=== PATIENT | female | born 2000 | race Caucasian/White ===

== ENCOUNTER 2025-04-10 10:40 | Emergency (ER) | payer MEDICAID ==
[~2025-04-10] VITALS: Ht 149.9 cm; Wt 47.7 kg
[2025-04-10 11:28] LABS: LEUKOCYTE ESTERASE ,URINE TRACE (Neg); NITRITES, URINE NEGATIVE (Neg); OCCULT BLOOD,URINE TRACE-INTACT (Neg)
[2025-04-10 11:29] LABS: URINE HCG POSITIVE (NEG)
[2025-04-10 11:33] LABS: UA COLLECTION TYPE CLN CATCH MIDSTREAM
[2025-04-10 11:34] LABS: MEAN PLATELET VOLUME 9.8 FL (7.4-10.4); RED CELL DISTRIBUTION WIDTH 12.8 % (11.5-14.5)
[2025-04-10 11:34] LABS: MUCUS STRANDS FEW /LPF (Neg); SQUAMOUS EPITHELIAL CELL,UR MODERATE /LPF (FEW)
[2025-04-10 11:40] LABS: CREATININE 0.55 MG/DL (0.40-0.90); TOTAL CARBON DIOXIDE 17.6 MMOL/L (24-32); eCRCL 106 ML/MIN; eGFR > 90 ML/MIN
--- NOTE | 2025-04-10 13:40 | Physician Documentation ---
History of Present Illness ~ Chief Complaint: Vomiting Stated Complaint: MORNING SICKNESS Time Seen by MD: 11:54 OK to notify your PCP?: Yes Source: patient Mode of Arrival: POV Exam Limitations: no limitations HPI Presents to the ER for vomiting and nausea for the past 2 weeks. She reports that she is unable to keep food or water down. She is approximately 11 weeks , . She reports that she was seen at urgent care last week and was prescribed Diclegis for her morning sickness but it has not been helpful at all. She is currently taking 2 tablets at bedtime. Last dose was last night. She reports that she has been nauseous with occasional vomiting over the past couple of months. She denies having any vaginal bleeding but she does report having occasional cramping sensation. Denies any urinary symptoms. Medication Reconciliation Allergies: Coded Allergies: No Known Allergies (Unverified , 04/10/25) Miscellaneous Medications Home Med List (No Home Medications), (Reported) Past Medical History Past Medical History: No Pertinent History Review of Systems All Other Systems at this time: Reviewed and Negative Physical Exam Physical Exam Vital Signs: RN Vital Signs have been reviewed: Yes, Temperature: 97.9, Source: Temporal, Heart Rate: 89, Respiratory Rate: 16, BP: 115/82, Pulse Oximetry: 99, Weight: 47.700 Oxygen Flow Rate: 0 Pulse Oximetry Reflects: adequate oxygenation Physical Exam General: Alert, no apparent distress. HEENT: PERRL, EOMI, no injection, moist mucous membranes. Sclera appears slightly icteric. Neck: Full range of motion. Respiratory: Lungs clear, no respiratory distress. Chest: No accessory muscle use. Cardiovascular: Regular rate and rhythm, no murmurs. Gastrointestinal: Soft, tender in left and right upper quadrant, nondistended. Bowels sounds present. No organomegaly. Guarding or rebound tenderness. Extremities: Normal range of motion, no deformity. Neurologic: Oriented x4. Psychiatric: Normal mood and affect. Skin: Normal color, warm and dry. No edema, no ecchymosis. No obvious jaundice Progress Progress Note Transfer declined at [facility] due to bed availability. Attempting [facility] for transfer. Started normal saline at 150 mL an hour for hydration End of shift, transfer of care to Dr. Pollard. Results/Orders Results/Orders Orders - MILAGROS,KARIN D RADIO STATION ENGINEER Ultrasound Of Abdomen (04/10/25 13:13) US OB (04/10/25 13:13) Saline Lock (04/10/25 ) Page Hospitalist (04/10/25 15:20) Fill Out Med Reconciliation (04/10/25 15:20) Potassium Cl Inj (Potassium Cl Inj) (04/10/25 15:25) Completed Orders - KARIN LINARESP Pt Inr (04/10/25 13:13) Ammonia (04/10/25 13:13) Ringers Solution, Lacted (Lactated Ringe (04/10/25 13:15) MG (04/10/25 13:13) Ultrasound Of Abdomen (04/10/25 13:13) US OB (04/10/25 13:13) Hcg Serum Qt (04/10/25 13:13) Metoclopramide Inj (Reglan Inj) (04/10/25 13:15) Ceftriaxone/I0s-Fvemvido 1gm (Rocephin 1 (04/10/25 15:25) Medications Received in ER Medications (Trade) Dose Ordered Sig/Haley Route PRN Reason Start Time Stop Time Status Last Admin Dose Admin (lactated ringers solution) 1,000 ml ONCE ONCE IV 04/10/25 13:15 04/10/25 13:42 DC 04/10/25 13:59 1,000 ML (Reglan inj) 5 mg ONCE ONCE IV 04/10/25 13:15 04/10/25 13:42 DC 04/10/25 13:58 5 MG Ceftriaxone Sodium 50 ml @ 100 mls/hr ONCE ONCE IV 04/10/25 15:25 04/10/25 15:54 DC 04/10/25 16:10 100 MLS/HR Potassium Chloride 40 meq/ Sodium Chloride 520 ml @ 130 mls/hr ONCE ONCE IV 04/10/25 15:25 04/10/25 19:24 04/10/25 16:22 130 MLS/HR Vital Signs 04/10/25 04/10/25 04/10/25 04/10/25 10:44 11:15 12:08 13:15 Temp 97.9 Pulse 99 94 92 89 Resp 18 16 18 16 B/P (MAP) 123/79 115/82 (93) 109/77 (88) 115/82 (93) Pulse Ox 98 99 98 99 O2 Flow Rate 0 0 0 0 04/10/25 04/10/25 15:01 16:48 Pulse 90 80 Resp 16 18 B/P (MAP) 110/73 (85) 105/67 (80) Pulse Ox 99 99 O2 Flow Rate 0 0 Laboratory Tests Test 04/10/25 10:50 04/10/25 11:04 Urine Specimen Description Cln catch midstream Urine Color Yellow Urine Clarity Clear Urine pH 6.5 Urine Specific [place] >=1.030 Urine Protein 30 H Urine Glucose (UA) Negative Urine Ketones >=80 Urine Occult Blood Trace-intact Urine Nitrite Negative Urine Bilirubin Moderate Urine Urobilinogen 1.0 Urine Leukocyte Esterase Trace H Urine RBC 0-2 Urine WBC 5-10 H Urine Squamous Epithelial Cells Moderate Urine Bacteria Few Urine Mucus Few Urine Culture Indicated Indicated Volume Urine Centrifuged 10 ml Urine HCG, Qualitative Positive Urine Comment White Blood Count 12.4 H Red Blood Count 4.62 Hemoglobin 14.7 Hematocrit 42.8 Mean Corpuscular Volume 92.6 Mean Corpuscular Hemoglobin 31.8 H Mean Corpuscular Hemoglobin Concent 34.4 Red Cell Distribution Width 12.8 Platelet Count 418 Mean Platelet Volume 9.8 Neutrophils (%) (Auto) 80.3 H Lymphocytes (%) (Auto) 11.7 L Monocytes (%) (Auto) 7.7 Eosinophils (%) (Auto) 0.1 Basophils (%) (Auto) 0.2 Neutrophils # (Auto) 10.0 H Lymphocytes # (Auto) 1.5 Monocytes # (Auto) 1.0 H Eosinophils # (Auto) 0.0 Basophils # (Auto) 0.0 CBC Comment Prothrombin Time 15.1 H INR International Normalized Ratio 1.5 Coagulation Comments Sodium Level 137 Potassium Level 3.1 L Chloride Level 101 Carbon Dioxide Level 17.6 L Anion Gap 18 H Blood Urea Nitrogen 4 L Creatinine 0.55 Estimated GFR/1.73 m2 > 90 BUN/Creatinine Ratio 7.3 L Glucose Level 100 Calcium Level 9.5 Magnesium Level 1.8 Total Bilirubin 2.2 H Aspartate Amino Transf (AST/SGOT) 169 H Alanine Aminotransferase (ALT/SGPT) 635 H Alkaline Phosphatase 116 Ammonia < 10 L Total Protein 8.2 Albumin 3.8 Globulin 4.4 H Albumin/Globulin Ratio 0.9 L Lipase 109 H HCG Beta Subunit [id number] Chemistry Comments Microbiology Date/Time Source Procedure Growth Status 04/10/25 11:34 Urine Clean Catch Midstream Urine Culture - Preliminary Culture received. Resulted EKG/XRAY/CT/US/VASC/MRI Ultrasound : Impression Ultrasound OB as interpreted by me shows: Single live intrauterine with heart rate of 167 bpm. Ultrasound of abdomen as interpreted by me shows: Sludge within the Gallbladder, No evidence of gallstones, gallbladder wall thickening or pericholecystic free fluid. Positive sonographic Palm's sign. Medical Decision Making Additional information obtaine: old records Findings Physical exam reveals slight jaundice of sclera, tender upper abdomen, no obvious liver enlargement. Vital signs are stable. Patient labs show elevated CBC 12.4, potassium 3.1, CO2, elevated anion gap, bilirubin 2.2, AST 169, ALT 635, lipase 109, protein, leukocyte esterase, elevated WBC, bacteria and bilirubin in urine. Discussed this case with Dr. Quijano who recommended getting a hCG quant, abdominal ultrasound to evaluate the liver and pancreas. To rule out acute liver failure, I have ordered PT INR and ammonia. Since the potassium was low I ordered to check magnesium. For her dehydration and sym ptoms, I ordered 1 L lactated Ringer's as well as IV metoclopramide 5 mg for nausea. I decreased the dose of metoclopramide due to this patient's severe hepatic impairment and electrolyte abnormalities and gave the hepatic impairment dose adjustment of 5 mg instead of the full 10 mg. The Reglan improved her nausea but she is unable to keep water/ice chips down. Since she is currently taking Diclagis 10-10 2 tablets at nighttime with a past week in his not working I resorted to metoclopramide. INR is normal, PTS slightly elevated. Ammonia level is normal. Ob ultrasound shows live viable fetus at 167 beats per minute approximately 11 weeks/ 4 days. Abdominal ultrasound shows Sludge within the Gallbladder with No evidence of gallstones, gallbladder wall thickening or pericholecystic free fluid. Positive sonographic Palm's sign. The pancreas was not well visualized. For the UTI treatment, I gave IV Rocephin and to correct the potassium 40 mEq IV. Attempted to admit this patient however admission for acute cholecystitis, pancreatitis and electrolyte abnormalities but was declined by hospitalist, Dr. Mayfield due to no obstetric services present here. Spoke with Dr. Quijano again and she recommended transferring to a hospital that does have the services. Transfer process initiated. Differential Dx:Considerations: Include: Active labor-, Cystitis: Acute, Ectopic , demise, Placenta previa, Pyelonephritis: Acute Departure Disposition: 04 [facility] Impression: Primary Impression: Vomiting of Additional Impressions: Hypokalemia Cholecystitis, acute Elevated alanine aminotransferase (ALT) level Elevated SGOT (AST) Elevated bilirubin UTI (urinary tract infection) in in first trimester Elevated lipase Referrals: NO PRIMARY CARE PROVIDER (PCP) Additional Comment Medical Screen Exam This patient recieved a medical screening examination. After reviewing the individual's medical complaints with presenting symptoms and performing an appropriate physical examination, it was determined that no immediate life- threatening emergency medical condition is present. This individual is also not a women having contractions. Signature Scribe Signature: . Attestation: Scribed for Karin Linaresp by Karin Matias NP . 04/10/25 18:05 Parts of this note were created using Pixelated voice recognition software program. While efforts were made to correct any mistakes made by this voice recognition software program, nonsensical phrases may remain in this note. In addition, there may be errors and syntax, grammar, content and spelling. KARIN LINARES RADIO STATION ENGINEER Apr 10, 2025 13:40
[2025-04-10 13:56] LABS: INR 1.5 INR
[2025-04-10] MEDS: metoclopramide 5 mg/ml inj IV ONE ×2 (13:58→21:25)
[2025-04-10] MEDS: ringers solution, lactated 1000ml IV soln IV ONE (13:59)
--- NOTE | 2025-04-10 14:44 | RADIOLOGY REPORT ---
PROCEDURE: US ULTRASOUND OF [facility] Study Date and Requested Time: 04/10/2025 01:47 PM History: confirm viability, elevated ALT, bilirubin and lipase COMPARISON: None TECHNIQUE: Multiple high resolution chen-scale images obtained of the right upper quadrant of the abdomen with color Doppler for evaluation of blood flow and vascularity as indicated. FINDINGS: Liver normal in size, measuring 4.9 cm in length, with homogenous echotexture and normal contours. No evidence of focal hepatic lesions, intrahepatic or extrahepatic ductal dilatation. Common bile duct measures 0.3 cm in diameter. Sludge within the gallbladder. Otherwise, the gallbladder is unremarkable unremarkable with no evidence of abnormal wall thickening, gallstones, or pericholecystic fluid. Positive sonographic Palm's sign. Pancreas is obscured by bowel gas. Right kidney measures 9.7 cm in length, with normal contours, echotexture, and cortical thickness. No evidence of hydronephrosis, calculi, cystic or solid renal lesions. Partially visualized inferior vena cava unremarkable. IMPRESSION: Sludge within the Gallbladder with No evidence of gallstones, gallbladder wall thickening or pericholecystic free fluid. Positive sonographic Palm's sign. Findings are not definitely for acute cholecystitis.
--- NOTE | 2025-04-10 15:08 | RADIOLOGY REPORT ---
PROCEDURE: US US OB Study Date and Requested Time: 04/10/2025 01:57 PM Study Description: US US OB History: confirm , confirm viability COMPARISON: None TECHNIQUE: Multiple high resolution chen-scale images obtained of the uterus, fetus, and other gestational components with M-mode scanning for evaluation of heart rate. FINDINGS: Single live intrauterine with gestational sac and fetus visualized. heart rate of 167 bpm. Estimated gestational age 11 weeks/4 days based on mean gestational sac diameter of 5.1 cm and crown-rump length of 5.75 cm Uterus measures 8.1 x 7.5 x 10 cm in size. Cervical os appears closed. Right ovary measures 2.9 x 2.3 x 2.4 cm. Left ovary measures 3.2 x 1.3 x 1.3 cm. Normal ovarian color Doppler flow bilaterally. No evidence of cystic or solid ovarian lesions. No evidence of free fluid in the cul-de-sac. IMPRESSION: Single live intrauterine with heart rate of 167 bpm. Estimated gestational age 11 weeks/4 days with estimated date of confinement 10/26/2025.
[2025-04-10] MEDS: CefTRIAXone/D5W-Rocephin 1gm 50 ML IV ONE (16:10)
[2025-04-10] MEDS: Potassium Cl inj 40 MEQ in normal saline 500ml IV soln 500 ML IV ONE (16:22)
[2025-04-10] MEDS ORDERED: NO HOME MEDS (17:15)
[2025-04-10] MEDS: normal saline 1000ml 1,000 ML IV SCH (21:26)
[2025-04-11 03:06] VITALS: TEMP 97.9
[2025-04-11] MEDS: ondansetron/PF 4mg/2ml inj IV ONE ×2 (03:18→08:52)
--- NOTE | 2025-04-11 06:06 | Physician Documentation ---
Addendum Received patient in sign out from outgoing ED physician, Dr. Pollard. Please see their note (and other providers) for further specific details regarding initial encounter. HPI/Course In Brief: Presents to the ER for vomiting and nausea for the past 2 weeks. She reports that she is unable to keep food or water down. She is approximately 11 weeks , . She reports that she was seen at urgent care last week and was prescribed Diclegis for her morning sickness but it has not been helpful at all. She is currently taking 2 tablets at bedtime. Last dose was last night. She reports that she has been nauseous with occasional vomiting over the past couple of months. She denies having any vaginal bleeding but she does report having occasional cramping sensation. Denies any urinary symptoms. Slight elevation of lipase and transaminitis suggestive of gallstone pancreatitis. Awaiting to hear back from Matty Britton Blair. 04/11/2025, 10:07 a.m.: The patient has been here approximately 23-1/2 hours. She has remained stable. Repeat (morning) labs do show a decreased bicarb. The patient is only medication is just recently prescribed Diclegis (doxylamine and pyridoxine). No history of diarrhea, just vomiting. No history of renal issues. This patient has a normal anion gap and a normal potassium level. She appears to be suffering from a metabolic (hyperchloremic) acidosis. I am going to start her on a bicarbonate drip which means she will have to be transported ALS. Numerous attempts at transferring this patient to [facility] have thus far been unsuccessful due to fog (for flight) or in availability of ALS transfer. [facility] is not capable of running any drips during transfer. 04/11/2025, 12:50 p.m.: I spoke with our orthopedic physician assistant on-call, Dr. Watkins, who recommended giving the patient 50 mEq of sodium bicarbonate push followed by th ree amps of bicarbonate in D5W run at 150 cc/hour. I am also checking her lactate. He felt that if we can get her bicarb level two between 15 to 17 she could be transferred by [facility] without any intravenous drips running. 04/11/2025, 1:00 p.m.: I have just been advised that the helicopter will be arriving to transport this patient in 90 minutes. ED COURSE: I Informed the patient of: 1. Nature of abnormal findings 2. Implications of the findings 3. Possible consequences of not receiving additional diagnosis and/or treatment, or following the current treatment plan. 4. Explanation of management options and provision of appropriate referral resources as indicated 5. Their responsibility to receive follow-up care Discussed harm reduction to this emergency department visit today. Patient expresses understanding and agrees to plan. All questions answered to the best of my ability. Discharged in stable condition with strict ED return precautions and close outpatient follow-up with primary care. EMR and Dragon Attestation - this medical document was created using an electronic medical record system with [employer] computerized dictation system. Although this document has been carefully reviewed, there may still be some phonetic and typographical errors. These errors are purely typographical, due to imperfections of the software programs, and do not reflect any compromise in the patient's medical care. Note to Patients: Physician notes are written for the purpose of communication between medical providers and billing purposes. There may be aspects of this documentation that are simplified for efficiency and clarity. Physician notes are not intended to capture the entirety of your experience in the hospital. If you have questions about the way your medical condition and care was documented, please do not hesitate to bring this up at your next visit with your physician. Departure Disposition: [facility] Impression: Primary Impression: Vomiting of Additional Impressions: Transaminitis Metabolic acidosis Condition: ANILA Figueroa MD Apr 11, 2025 06:06
[2025-04-11 08:01] LABS: MEAN PLATELET VOLUME 9.0 FL (7.4-10.4); RED CELL DISTRIBUTION WIDTH 12.8 % (11.5-14.5)
[2025-04-11 08:28] LABS: CREATININE 0.31 MG/DL (0.40-0.90); eCRCL 188 ML/MIN; eGFR > 90 ML/MIN
[2025-04-11 08:32] LABS: TOTAL CARBON DIOXIDE 14.4 MMOL/L (24-32)
[2025-04-11] MEDS: normal saline 1000ml 1,000 ML IV ONE (08:43)
[2025-04-11] MEDS: normal saline 1000ml 1,000 ML IV SCH (10:32)
[2025-04-11 11:32] LABS: CREATININE 0.28 MG/DL (0.40-0.90); eCRCL 208 ML/MIN; eGFR > 90 ML/MIN
[2025-04-11 11:35] LABS: TOTAL CARBON DIOXIDE 11.5 MMOL/L (24-32)
[2025-04-11] MEDS: sodium bicarbonate 1meq/ml inj 150 ML in dextrose 5%-water 1,000 ML IV SCH (13:01)
[2025-04-11] MEDS: sodium bicarbonate (8.4%) 1 mEq/ml syringe IV ONE (13:07)
[2025-04-11 14:35] VITALS: BP 109/63; PULSE 76; RESP 15; O2SAT 98
== END 2025-04-11 14:50 ==
LOC: ER 10:41
DX: O26.891 Other specified pregnancy related conditions, first trimester (principal); O23.41 Unspecified infection of urinary tract in pregnancy, first trimester; K81.0 Acute cholecystitis; Z3A.11 11 weeks gestation of pregnancy
CPT/HCPCS: 36415; 76700; 76801; 80048; 80053; 81001; 81025; 82140; 82800; 83605; 83690; 83735; 84702; 85025; 85610; 87088; 96361; 96365; 96366; 96368; 96375; 96376; 99285; J0696; J2405; J2765; J3480; J3490; J7030; J7040; J7070; J7120